=== PATIENT | male | born 1980 | race African-American/Black ===

== ENCOUNTER 2016-04-30 19:58 | Emergency (ER) | payer MEDICAID ==
--- NOTE | 2016-04-30 20:30 | ER Document Report ---
ED Medical Screen (RME) - General Chief Complaint: Diarrhea Stated Complaint: VOMITING,DIARRHEA Notes: onset today vomiting and diarrhea not tolerating PO No evidence of hematemesis, hematochezia, bright red blood per rectum, black stools I have greeted and performed a rapid initial assessment of this patient. A comprehensive ED assessment and evaluation of the patient, analysis of test results and completion of the medical decision making process will be conducted by additional ED providers. TRAVEL OUTSIDE OF THE [place] IN LAST 30 DAYS: No - Related Data Allergies/Adverse Reactions: No Known Allergies Allergy (Unverified 07/30/14 17:21) Past Medical History Neurological Medical History: Reports: Hx Seizures Psychiatric Medical History: Reports: Hx Schizophrenia
[2016-04-30] MEDS ORDERED: ONDANSETRON 4 MG TAB.RAPDIS PO ONE (20:31)
[2016-04-30] MEDS ORDERED: NORMAL SALINE 1000 ML 1,000 ML IV ONE ×2 (21:36→22:20)
[2016-04-30] MEDS ORDERED: LORAZEPAM INJ 2 MG/1 ML VIAL IV ONE (21:36)
--- NOTE | 2016-04-30 21:38 | ER Document Report ---
ED GI/ - General Chief Complaint: Diarrhea Stated Complaint: VOMITING,DIARRHEA Time seen by provider: 21:37 Notes: Patient is a 36-year-old male that comes emergency department for chief complaint of several episodes of watery diarrhea today and an episode of vomiting. Patient has not eaten much today reportedly. Patient has a history of autism, has page technician here with him today. Patient is on Prilosec, reportedly just for GERD. No hematemesis or hematochezia reported. No fevers reported. Patient has had no abdominal surgeries. Patient has just completed a course of Augmentin antibiotic. TRAVEL OUTSIDE OF THE [place] IN LAST 30 DAYS: No - Related Data Allergies/Adverse Reactions: No Known Allergies Allergy (Unverified 07/30/14 17:21) Past Medical History - General Information source: Friend - caretakers - Social History Smoking Status: Never Smoker Chew tobacco use (# tins/day): No Frequency of alcohol use: None Drug Abuse: None Lives with: Family Family History: Reviewed & Not Pertinent Patient has suicidal ideation: No Patient has homicidal ideation: No Neurological Medical History: Reports: Hx Seizures Renal/ Medical History: Denies: Hx Peritoneal Dialysis Psychiatric Medical History: Reports: Hx Schizophrenia Surgical Hx: Negative - Immunizations Immunizations up to date: Yes Hx Diphtheria, Pertussis, Tetanus Vaccination: Yes Review of Systems - Review of Systems Constitutional: No symptoms reported EENT: No symptoms reported Cardiovascular: No symptoms reported Respiratory: No symptoms reported Gastrointestinal: See HPI Genitourinary: No symptoms reported Male Genitourinary: No symptoms reported Musculoskeletal: No symptoms reported Skin: No symptoms reported Hematologic/Lymphatic: No symptoms reported Neurological/Psychological: No symptoms reported Physical Exam - Vital signs Vitals: Pulse Resp BP Pulse Ox 130 H 19 107/75 96 04/30/16 20:29 04/30/16 20:29 04/30/16 20:29 04/30/16 20:29 Interpretation: Normal - General General appearance: Appears well, Alert In distress: None - HEENT Head: Normocephalic, Atraumatic Eyes: Normal Conjunctiva: Normal Extraocular movements intact: Yes Eyelashes: Normal Pupils: PERRL Nasal: Normal Mouth/Lips: Normal Mucous membranes: Dry Pharynx: Normal Neck: Normal - Respiratory Respiratory status: No respiratory distress Chest status: Nontender Breath sounds: Normal. No: Decreased air movement, Wheezing Chest palpation: Normal - Cardiovascular Rhythm: Regular, Tachycardia Heart sounds: Normal auscultation, S1 appreciated, S2 appreciated Murmur: No - Abdominal Inspection: Normal Distension: No distension Bowel sounds: Normal Tenderness: Nontender. No: Tender, McBurney's point, Bruner's sign, Guarding Organomegaly: No organomegaly - Back Back: Normal, Nontender - Extremities General upper extremity: Normal inspection, Nontender, Normal color, Normal ROM , Normal temperature General lower extremity: Normal inspection, Nontender, Normal color, Normal ROM , Normal temperature, Normal weight bearing. No: Mukund's sign - Neurological Neuro grossly intact: Yes Cognition: Normal Orientation: AAOx4 [place] Coma Scale Eye Opening: Spontaneous [place] Coma Scale Verbal: Oriented [place] Coma Scale Motor: Obeys Commands [place] Coma Scale Total: 15 Speech: Normal Motor strength normal: LUE, RUE, LLE, RLE Sensory: Normal - Psychological Associated symptoms: Normal affect, Normal mood - Skin Skin Temperature: Warm Skin Moisture: Dry Skin Color: Normal Course - Re-evaluation Re-evalutation: Patient initially tachycardic, has dry mucous membranes, however his abdomen is soft and benign. Patient unable to provide a stool sample during his entire stay here. After Zofran patient did not have any vomiting. After IV fluids patient well-appearing, tachycardia resolved, requesting to go home. Mild leukocytosis on CBC, most likely from dehydration. Chemistry is unremarkable. Because physical exam is unremarkable and patient is well-appearing now, patient will be discharged with nausea medication, advised to begin probiotics because of recent Augmentin use, discussed a primary care follow-up and return precautions. Event Planning Intern states understanding and agreement. - Vital Signs Vital signs: Temp Pulse Resp BP Pulse Ox 98.6 F 96 16 146/92 H 100 05/01/16 02:51 05/01/16 02:46 05/01/16 02:51 05/01/16 02:51 05/01/16 02:51 - Laboratory Result Diagrams: 04/30/16 23:16 04/30/16 23:16 Laboratory results interpreted by me: 04/30/16 04/30/16 23:16 23:16 WBC 14.4 H RBC 4.01 L Hgb 13.3 L MCV 98 H RDW 14.6 H Seg Neutrophils % 78.3 H Lymphocytes % 11.1 L Absolute Neutrophils 11.2 H Absolute Monocytes 1.5 H Sodium 147.5 H Discharge - Discharge Clinical Impression: Vomiting and diarrhea Condition: Stable Disposition: HOME, SELF-CARE Additional Instructions: He has been treated for dehydration. Give Zofran for nausea, give him probiotic supplement because of his recent antibiotic use with Augmentin. Follow-up with primary care. Return to emergency department for any concerning or worsening symptoms including uncontrollable diarrhea, uncontrolled vomiting, fever, abdominal pain or swelling, etc. Prescriptions: Ondansetron [Zofran Odt 4 mg Tablet] 1 - 2 tab PO Q4H PRN #15 tab.rapdis PRN Reason: For Nausea/Vomiting Referrals: ARAM FREED MD [Primary Care Provider] - Follow up as needed
[2016-04-30] MEDS ORDERED: LORAZEPAM INJ 2 MG/1 ML VIAL IM ONE (22:24)
[2016-04-30 23:27] LABS: ABSOLUTE LYMPHOCYTES (AUTO) 1.6 10^3/uL (0.5-4.7); ABSOLUTE MONOCYTES (AUTO) 1.5 10^3/uL (0.1-1.4); ABSOLUTE NEUT (AUTO) 11.2 10^3/uL (1.7-8.2); BASOPHILS % (AUTO) 0.3 % (0-2); EOSINOPHILS % (AUTO) 0.1 % (0-6); HEMATOCRIT 39.1 % (37.9-51.0); HEMOGLOBIN 13.3 g/dL (13.5-17.0); HGB HCT DIFFERENCE 0.8; LYMPHOCYTES % (AUTO) 11.1 % (13-45); MEAN CORPUSCULAR HEMOGLOBIN 33.2 pg (27.0-33.4); MEAN CORPUSCULAR HGB CONC 34.1 g/dL (32.0-36.0); MEAN CORPUSCULAR VOLUME 98 fl (80-97); MONOCYTES % (AUTO) 10.2 % (3-13); RED BLOOD COUNT 4.01 10^6/uL (4.35-5.55); RED CELL DISTRIBUTION WIDTH 14.6 % (11.5-14.0); SEGMENTED NEUTROPHILS % (AUTO) 78.3 % (42-78); WHITE BLOOD COUNT 14.4 10^3/uL (4.0-10.5)
[2016-04-30 23:51] LABS: ALANINE AMINOTRANSFERASE 24 U/L (21-72); ALKALINE PHOSPHATASE 55 U/L (38-126); ANION GAP 16 (5-19); ASPARTATE AMINO TRANSFERASE 24 U/L (17-59); BILIRUBIN,TOTAL 0.6 mg/dL (0.2-1.3); BLOOD UREA NITROGEN 20 mg/dL (7-20); CALCIUM 9.6 mg/dL (8.4-10.2); CARBON DIOXIDE 30 mmol/L (22-30); CHLORIDE 102 mmol/L (98-107); CREATININE RESULT 0.91 mg/dL (0.52-1.25); GLUCOSE 86 mg/dL (75-110); LIPASE 114.9 U/L (23-300); POTASSIUM 4.7 mmol/L (3.6-5.0); SODIUM 147.5 mmol/L (137-145); TOTAL PROTEIN 6.7 g/dL (6.3-8.2)
[2016-05-01] MEDS ORDERED: ONDANSETRON ODT 4 MG TAB (6 TAB/DSPK) PO PRN (00:30)
[2016-05-01 02:52] VITALS: BP 146/92
== END 2016-05-01 02:52 | disposition home or self-care (01) ==
LOC: ER 19:58
DX: R11.10 Vomiting, unspecified (principal); R19.7 Diarrhea, unspecified; R00.0 Tachycardia, unspecified; K21.9 Gastro-esophageal reflux disease without esophagitis
CPT/HCPCS: 99284; 96372; 96360; 36415; 83690; 85025; 80053; S0119; J2060; J7030

== ENCOUNTER 2016-07-05 10:34 | Emergency (ER) | payer MEDICAID ==
[2016-07-05 10:49] VITALS: BP 128/69
--- NOTE | 2016-07-05 12:08 | ER Document Report ---
ED Head/Face/Scalp Injury - General Mode of Arrival: Ambulatory TRAVEL OUTSIDE OF THE [place] IN LAST 30 DAYS: No <BLAS HUYNH - Last Filed: 07/05/16 12:02> <TAVO UNDERWOOD - Last Filed: 07/05/16 12:38> - General Chief Complaint: Head Injury Stated Complaint: FALL/ HEAD INJURY - HPI Notes: Patient arrives with his caregiver at the bedside with complaints of minor head injury. He tripped and hit the left frontal aspect of his scalp right at the hairline on the corner of a dresser causing some superficial minor lacerations. There was no loss of consciousness. He is on no blood thinners. He's had no vomiting. His caregiver states that he is acting completely appropriate for himself. Patient has known autism and is semi-verbal but not really able to communicate. Caregiver denies any other injuries. And states that he's been acting completely appropriate otherwise. (BLAS HUYNH) - Related Data Allergies/Adverse Reactions: No Known Allergies Allergy (Verified 07/05/16 10:43) Past Medical History - Social History Smoking Status: Never Smoker Chew tobacco use (# tins/day): No Frequency of alcohol use: None Drug Abuse: None Family History: Reviewed & Not Pertinent Patient has suicidal ideation: No Patient has homicidal ideation: No Neurological Medical History: Reports: Hx Seizures Renal/ Medical History: Denies: Hx Peritoneal Dialysis Psychiatric Medical History: Reports: Hx Schizophrenia Surgical Hx: Negative - Immunizations Immunizations up to date: Yes Hx Diphtheria, Pertussis, Tetanus Vaccination: Yes <BLAS HUYNH - Last Filed: 07/05/16 12:02> Review of Systems - Review of Systems -: Yes All other systems reviewed and negative <BLAS HUYNH - Last Filed: 07/05/16 12:02> Physical Exam - General General appearance: Appears well, Alert - HEENT Head: Normocephalic, Other - 2 2 cm lacerations to the left frontal scalp at the hairline. Lacerations are approximated at this time. There is no active bleeding. There is no surrounding erythema or drainage. Eyes: Normal Pupils: PERRL - Respiratory Respiratory status: No respiratory distress Breath sounds: Normal - Cardiovascular Rhythm: Regular Heart sounds: Normal auscultation Murmur: No - Extremities General upper extremity: Normal inspection, Nontender, Normal color, Normal ROM , Normal temperature General lower extremity: Normal inspection, Nontender, Normal color, Normal ROM , Normal temperature, Normal weight bearing. No: Mukund's sign - Psychological Associated symptoms: Other - Patient is autistic, at times he gets slightly aggressive. For the most part he was calm during his visit. Although is very reluctant to let us fix his lacerations. - Skin Skin Temperature: Warm Skin Moisture: Dry Skin Color: Normal <BLAS HUYNH - Last Filed: 07/05/16 12:02> <TAVO UNDERWOOD - Last Filed: 07/05/16 12:38> - Vital signs Vitals: Pulse Resp BP Pulse Ox 84 20 128/69 H 97 07/05/16 10:43 07/05/16 10:43 07/05/16 10:43 07/05/16 10:43 - Neurological Notes: Patient is autistic. Patient is moving all 4 extremities. He has no focal neurological deficits identified. Caregiver states that he is acting like his normal self. (BLAS HUYNH) - Skin Notes: 2 2 cm lacerations to the left frontal scalp at the hairline. Wound margins are well approximated, no active bleeding, no drainage, no redness. (BLAS HUYNH) Course <BLAS HUYNH - Last Filed: 07/05/16 12:02> <TAVO UNDERWOOD - Last Filed: 07/05/16 12:38> - Re-evaluation Re-evalutation: 07/05/16 12:10 Patient's nontoxic. Stable vitals. The patient sustained a minor head injury where he hit his head on the corner of a dresser at home causing too superficial lacerations. Lacerations are well approximated at this time with no active bleeding. No signs of infection. Patient is autistic and very reluctant to allow us to repair his lacerations. I discussed this with his caregiver, she believes that it would be more traumatic for us to attempt to hold him down in order to glue these lacerations that it would be worth. I agree as the lacerations are well approximated with no active bleeding at this time. I believe the cosmetic outcome would be no difference whether we glue the lacerations or not. The caregivers in agreement with this. She is going to ensure that the patient's tetanus is up-to-date with his primary care physician. The patient had no loss of consciousness, he is on no blood thinners , is not vomiting, and is acting normal according to his caregiver. He has a nonfocal exam at this time. No head imaging is required at this time. Patient will be discharged home with discharge and to return for bleeding, redness or drainage from the wounds, severe vomiting, acting abnormal, or any further concerns. The patient is noted to have elevated blood pressure during today's emergency department visit. The patient was informed of this finding. The patient was instructed that this may be related to pre-hypertension and requires further evaluation with a primary care provider. The patient has no hypertensive symptoms at this time. The patient's emergency department workup and current diagnosis were explained to the patient and or family. Follow-up instructions were provided. Medications if prescribed were discussed. Instructions for when to return to the emergency department including specific worrisome symptoms were discussed with the patient and/or family. (BLAS HUYNH) 07/05/16 12:37 Patient was seen in conjunction with Blas Huynh. Agree with assessment. I do not think that the patient warrants imaging today. He did not lose consciousness, is not anticoagulated, he is under 64, he is acting himself. Discussed doing Steri-Strips with patient and care provider. I do not think that they need to be sutured. She can also put bacitracin on them as they are not bleeding and superficial. Caregiver agrees with this plan. Patient is stable for discharge (TAVO UNDERWOOD) - Vital Signs Vital signs: Temp Pulse Resp BP Pulse Ox 84 20 128/69 H 97 07/05/16 10:43 07/05/16 10:43 07/05/16 10:43 07/05/16 10:43 Discharge <BLAS HUYNH - Last Filed: 07/05/16 12:02> <TAVO UNDERWOOD - Last Filed: 07/05/16 12:38> - Discharge Clinical Impression: Laceration of head Qualifiers: Encounter type: initial encounter Location of open wound of head: scalp Foreign body presence: without foreign body Qualified Code(s): S01.01XA - Laceration without foreign body of scalp, initial encounter Disposition: HOME, SELF-CARE Instructions: Laceration Care ([facility]) Additional Instructions: Keep wound clean and dry. Clean twice a day with soap and water. Follow-up for redness, drainage, fever, persistent vomiting, acting abnormal, or any further concerns. Ensure that his tetanus is up-to-date with his primary care doctor. Your blood pressure was elevated during today's visit. Have this rechecked with your doctor. Forms: Elevated Blood Pressure Cosign for MLP Exam - Cosign -: I personally evaluated and examined the patient in conjunction with the MLP and agree with the assessment, treatment plan and disposition. Cosign for MLP: Bennie <TAVO UNDERWOOD - Last Filed: 07/05/16 12:38>
== END 2016-07-05 13:03 | disposition home or self-care (01) ==
LOC: ER 10:34
DX: S01.01XA Laceration without foreign body of scalp, initial encounter (principal); W01.190A Fall on same level from slipping, tripping and stumbling with subsequent striking against furniture, initial encounter; Y92.009 Unspecified place in unspecified non-institutional (private) residence as the place of occurrence of the external cause; F84.0 Autistic disorder; R03.0 Elevated blood-pressure reading, without diagnosis of hypertension
CPT/HCPCS: 99283

== ENCOUNTER → 2017-10-30 | Outpatient (CLI) | payer MEDICAID ==
[2017-10-30 12:55] LABS: ABSOLUTE BASOPHILS # (AUTO) 0.1 10^3/uL (0.0-0.2); ABSOLUTE LYMPHOCYTES (AUTO) 4.3 10^3/uL (0.5-4.7); ABSOLUTE MONOCYTES (AUTO) 0.9 10^3/uL (0.1-1.4); ABSOLUTE NEUT (AUTO) 4.8 10^3/uL (1.7-8.2); BASOPHILS % (AUTO) 0.7 % (0-2); EOSINOPHILS % (AUTO) 0.4 % (0-6); HEMATOCRIT 41.8 % (37.9-51.0); HEMOGLOBIN 14.3 g/dL (13.5-17.0); MEAN CORPUSCULAR HEMOGLOBIN 33.1 pg (27.0-33.4); MEAN CORPUSCULAR HGB CONC 34.2 g/dL (32.0-36.0); MEAN CORPUSCULAR VOLUME 97 fl (80-97); MONOCYTES % (AUTO) 9.2 % (3-13); PLATELET COUNT 305 10^3/uL (150-450); RED BLOOD COUNT 4.32 10^6/uL (4.35-5.55); RED CELL DISTRIBUTION WIDTH 14.8 % (11.5-14.0); SEGMENTED NEUTROPHILS % (AUTO) 47.7 % (42-78); TOTAL CELLS COUNTED % (AUTO) 100 %; WHITE BLOOD COUNT 10.2 10^3/uL (4.0-10.5)
[2017-10-30 13:12] LABS: ALBUMIN 4.4 g/dL (3.5-5.0); ANION GAP 14 (5-19); BLOOD UREA NITROGEN 14 mg/dL (7-20); CARBON DIOXIDE 25 mmol/L (22-30); CHLORIDE 105 mmol/L (98-107); GLUCOSE 87 mg/dL (75-110); POTASSIUM 5.7 mmol/L (3.6-5.0); SODIUM 143.7 mmol/L (137-145); TOTAL PROTEIN 7.2 g/dL (6.3-8.2)
[2017-10-30 13:14] LABS: ALANINE AMINOTRANSFERASE 29 U/L (21-72); ALKALINE PHOSPHATASE 81 U/L (38-126); ASPARTATE AMINO TRANSFERASE 28 U/L (17-59); BILIRUBIN,DIRECT 0.3 mg/dL (0.0-0.4); BILIRUBIN,TOTAL 0.4 mg/dL (0.2-1.3)
== END ==
LOC: OD 12:20
PROVIDERS: ATTEND Internal Medicine Geriatric Medicine
DX: Z00.00 Encounter for general adult medical examination without abnormal findings (principal)
CPT/HCPCS: 36415; 80053; 85025